=== PATIENT | female | born 1985 | race Caucasian/White ===

== ENCOUNTER 2020-01-20 17:35 | Emergency (ER) | payer OTHER ==
[2020-01-20 17:42] VITALS: TEMP 98; BMI 28.7
--- NOTE | 2020-01-20 18:24 | PDOC ---
History of Present Illness - General Chief Complaint: Vaginal Bleeding Stated Complaint: VAGINAL BLEEDING (11 WEKS) Time Seen by Provider: 01/20/20 18:23 - History of Present Illness Initial Comments: 01/20/20 19:20 34 y/o F A4 11 weeks (LMP 11/03) presents to the ED with 1 day of vaginal bleeding/spotting and right sided abdominal pain. Pain is right sided 8/10 pain that radiates to her back and is cramping in nature. Her last visit to OB was a few days ago and she reports Ultrasound and labs were fine. She denies any fevers, chills, vomiting, diarrhea, dysuria, purulent vaginal discharge Past History - Past Medical History Allergies/Adverse Reactions: Allergies Allergy/AdvReac Type Severity Reaction Status Date / Time No Known Drug Allergies Allergy Verified 01/20/20 17:42 Home Medications: Ambulatory Orders Pnv No.95/Ferrous Fum/Folic AC [ Caplet] 1 tablet PO DAILY 01/20/20 Anemia: Yes Asthma: Yes (SEASONAL) COPD: No GI Disorders: Yes (GERD) Thyroid Disease: No - Surgical History Appendectomy: Yes - Psycho Social/Smoking Cessation Hx Smoking History: Never smoked Have you smoked in the past 12 months: Yes Number of Cigarettes Smoked Daily: 3 Hx Alcohol Use: No Drug/Substance Use Hx: No Substance Use Type: None *Physical Exam - Vital Signs Last Vital Signs Temp Pulse Resp BP Pulse Ox 98 F 98 H 18 116/76 99 01/20/20 17:40 01/20/20 17:40 01/20/20 17:40 01/20/20 17:40 01/20/20 17:40 - Physical Exam 01/20/20 19:27 GENERAL: Awake, alert, and fully oriented, in no acute distress HEAD: No signs of trauma, normocephalic, atraumatic EYES: EOMI, sclera anicteric, conjunctiva clear ENT: Auricles normal inspection, hearing grossly normal, nares patent, oropharynx clear without exudates. Moist mucosa NECK: Normal ROM, supple, no lymphadenopathy, JVD, or masses LUNGS: No distress, speaks full sentences, clear to auscultation bilaterally HEART: Regular rate and rhythm, normal S1 and S2, no murmurs, rubs or gallops, peripheral pulses normal and equal bilaterally. ABDOMEN: Soft, ttp RLQ and suprapubic normoactive bowel sounds. No guarding, no rebound. No masses EXTREMITIES : Normal inspection, Normal range of motion, no edema. No clubbing or cyanosis NEUROLOGICAL: Cranial nerves II through XII grossly intact. Normal speec no focal sensorimotor deficits SKIN: Warm, Dry, normal turgor, no rashes or lesions noted ED Treatment Course - LABORATORY CBC & Chemistry Diagram: 01/20/20 18:58 01/20/20 18:58 Medical Decision Making - Medical Decision Making 01/20/20 19:30 34 y/o F A4 11 weeks (LMP 12/28) presents to the ED with 1 day of vaginal bleeding/spotting and right sided abdominal pain workup: cbc, cmp, ua, hcg quant, type and screen. 01/20/20 20:05 EXAM: <14WKS US HISTORY: Vaginal bleeding. COMPARISON: None. Preliminary findings/impression: 1. Single live intrauterine gestation, with heart rate ranging from 171 bpm to 179.3 bpm. Estimated gestational age by ultrasound criteria is 11 weeks and 5 days, with estimated gestational age by clinical parameters of 11 weeks and 1 day. 2. Nonvisualization of the right ovary. A short-term follow-up transvaginal ultrasound is recommended if there is concern for right adnexal abnormalities. 01/20/20 21:21 A single live intrauterine is seen to be present 11 weeks 5 days . Est imated due date is 08/05/2020 . heart rate measures 165.9 beats per minute. Anatomy: Limited due to emergent study. Cervix:5.2 cm and closed. IMPRESSION: 1. Single live intrauterine consistent with a 11 weeks 5 days gestation with an estimated due date of 08/05/2020. 2. No right ovarian torsion. . Discharge - Discharge Information Problems reviewed: Yes Clinical Impression/Diagnosis: Abdominal pain Qualifiers: Abdominal location: right lower quadrant Qualified Code(s): R10.31 - Right lower quadrant pain Condition: Stable - Admission No - Follow up/Referral - Patient Discharge Instructions Patient Printed Discharge Instructions: Vaginal Bleeding During Additional Instructions: you were seen in the ER for vaginal bleeding your ultrasounds showed a viable and your right ovary did not show signs of rupture take tylenol for pain at home. Follow up with your MAIN LINE ASSEMBLER in the next 2-3 days RETURN TO THE ER if you continue bleeding and soak more than 1-2 heavy pad in an hour, abdominal pain is persistent. you develop fevers, chills or purulent discharge. - Post Discharge Activity
[2020-01-20] MEDS ORDERED: SODIUM CHLORIDE 0.9% 500 ML INFUS.BAG IV ONE (18:54)
--- NOTE | 2020-01-20 19:12 | PDOC ---
Documentation entered by Ty De Los Santos SCRIBE, acting as scribe for Vicky Munoz MD. Vicky Munoz MD: This documentation has been prepared by the Filiberto hernandez Nirvannie, SCRIBE, under my direction and personally reviewed by me in its entirety. I confirm that the documentation accurately reflects all work, treatment, procedures, and medical decision making performed by me. Attending Attestation - Resident Resident Name: Gonzalez Rizvi - ED Attending Attestation I have performed the following: I have examined & evaluated the patient, The case was reviewed & discussed with the resident, I agree w/resident's findings & plan, Exceptions are as noted - HPI HPI: 01/20/20 19:11 34-year-old female presents with 1 day of vaginal bleeding and suprapubic pain. Past medical history 6. To a 4 HPI she saw her EQUIPMENT MECHANIC SPECIALIST Dr. Seth on Tuesday and she has had imaging studies that showed single live IUP of approximately 11 weeks She denies fever or chills or diarrhea or vomiting Past surgical history appendectomy - Physicial Exam PE: 01/20/20 19:12 Well-nourished well-developed 34-year-old female complaining of vaginal bleeding Head normocephalic atraumatic Neck is supple Lungs are clear to auscultation bilaterally CVS regular rate rhythm S1-S2 Abdomen soft, no rebound, no guarding pelvic exam done by Dr. Leisa Coleman and os was closed with minimal amount of clots in the vaginal vault, no CMT Extremities no pitting edema Skin warm and dry Neuro alert and oriented x3, ambulatory no gross focal neuro deficits - Medical Decision Making 01/20/20 19:13 Pression threatened AB Plan beta-hCG, type and screen, transvaginal ultrasound Patient has a follow-up visit with Dr. Seth January 29 01/20/20 23:37 SL IUP imp threatened AB plan net sorter follow up Discharge - Discharge Information Problems reviewed: Yes Clinical Impression/Diagnosis: Abdominal pain Qualifiers: Abdominal location: right lower quadrant Qualified Code(s): R10.31 - Right lower quadrant pain Condition: Stable Disposition: HOME - Follow up/Referral - Patient Discharge Instructions Patient Printed Discharge Instructions: Vaginal Bleeding During Additional Instructions: you were seen in the ER for vaginal bleeding your ultrasounds showed a viable and your right ovary did not show signs of rupture take tylenol for pain at home. Follow up with your EQUIPMENT MECHANIC SPECIALIST in the next 2-3 days RETURN TO THE ER if you continue bleeding and soak more than 1-2 heavy pad in an hour, abdominal pain is persistent. you develop fevers, chills or purulent discharge. - Post Discharge Activity
[2020-01-20 19:29] LABS: BASO % 0.5 % (0-2.0); EOS % 4.3 % (0-4.5); HEMATOCRIT 34.2 % (32.4-45.2); HEMOGLOBIN 11.7 GM/dL (10.7-15.3); LYMPH % 25.1 % (8-40); MCH 30.1 pg (25.7-33.7); MCHC 34.2 g/dl (32.0-36.0); MEAN CELL VOLUME 87.9 fl (80-96); NEUT % 64.1 % (42.8-82.8); PLATELET COUNT 183 K/MM3 (134-434); RBC 3.89 M/mm3 (3.60-5.2); RDW 13.5 % (11.6-15.6); WHITE BLOOD COUNT 7.3 K/mm3 (4.0-10.0)
[2020-01-20 20:24] LABS: ALBUMIN 3.3 g/dl (3.4-5.0); BILIRUBIN,TOTAL 0.3 mg/dL (0.2-1); BLOOD UREA NITROGEN 8.5 mg/dL (7-18); CALCIUM 8.4 mg/dL (8.5-10.1); CREATININE 0.6 mg/dL (0.55-1.3); POTASSIUM 3.7 mmol/L (3.5-5.1)
[2020-01-20 20:27] LABS: PH,URINE 7.5 (5.0-8.0); URINE APPEARANCE CLEAR; URINE BILIRUBIN NEGATIVE (NEGATIVE); URINE COLOR YELLOW; URINE GLUCOSE (UA) NEGATIVE (NEGATIVE); URINE KETONE NEGATIVE (NEGATIVE); URINE LEUK ESTERASE NEGATIVE (NEGATIVE); URINE NITRITE NEGATIVE (NEGATIVE); URINE PROTEIN NEGATIVE (NEGATIVE)
[2020-01-20] MEDS ORDERED: METOCLOPRAMIDE HCL INJECTION 10 MG/2 ML VIAL IVPB ONE (20:46)
[2020-01-20] MEDS ORDERED: METOCLOPRAMIDE HCL INJECTION 10 MG/2 ML VIAL ONE (20:53)
[2020-01-20 21:48] VITALS: BP 102/72; PULSE 99
== END 2020-01-20 21:40 | disposition home or self-care (01) ==
LOC: JER 17:35
PROC: 3E033GC Introduction of Other Therapeutic Substance into Peripheral Vein, Percutaneous Approach (ICD-10-PCS; principal; 2020-01-20)
DX: O26.891 Other specified pregnancy related conditions, first trimester (principal); R10.31 Right lower quadrant pain; Z3A.11 11 weeks gestation of pregnancy; D64.9 Anemia, unspecified; K21.9 Gastro-esophageal reflux disease without esophagitis; J45.998 Other asthma
CPT/HCPCS: 36415; 76801-TC; 76817-TC; 80053; 81003; 84702; 85025; 86850; 86900; 86901; 99284-25

== ENCOUNTER 2020-08-10 19:25 | Inpatient (IN) | payer OTHER ==
[2020-08-10] MEDS ORDERED: AMPICILLIN - 2 GM in SODIUM CHLORIDE 100 ML IVPB ONE (19:30)
--- OUTSIDE RECORDS SUMMARY | 2020-08-10 19:48 | XMS ---
:1985 Author Organization [facility] Support Name Relationship Address Phone [employer] Unavailable [address] [place] [address] SARAH MOTHER [address] [place] [address] Re-disclosure Warning The records that you are about to access may contain information from federally- assisted alcohol or drug abuse programs. If such information is present, then the following federally mandated warning applies: This information has been disclosed to you from records protected by federal confidentiality rules (42 CFR part 2). The federal rules prohibit you from making any further disclosure of this information unless further disclosure is expressly permitted by the written consent of the person to whom it pertains or as otherwise permitted by 42 CFR part 2. A general authorization for the release of medical or other information is NOT sufficient for this purpose. The Federal rules restrict any use of the information to criminally investigate or prosecute any alcohol or drug abuse patient.The records that you are about to access may contain highly sensitive health information, the redisclosure of which is protected by Article 27-F of the [facility] Public Health law. If you continue you may haveaccess to information: Regarding HIV / AIDS; Provided by facilities licensed or operated by the [facility] Office of Mental Health; or Provided by the [facility] Office for People With Developmental Disabilities. If such information is present, then the following [facility] mandated warning applies: This information has been disclosed to you from confidential records which are protected by state law. State law prohibits you from making any further disclosure of this information without the specific written consent of the person to whom it pertains, or as otherwise permitted by law. Any unauthorized further disclosure in violation of state law may result in a fine or nursing home sentence or both. A general authorization for the release of medical or other information is NOT sufficient authorization for further disclosure. Insurance Providers Payer name Policy type / Policy ID Covered Covered constitution party's Policy Plan Coverage type constitution party ID relationship to [place] Information [place] [employer] HMO [id number] SP [id number] Results ID Date Data Source [id number] 08/06/2020 12:14:00 PM EDT [facility] Name Value Range Interpretation Description Data Sup porting Code Source(s) Document(s ) SARS [facility] coronavirus 2 RNA This lab was ordered by [facility] and reported by [facility]. Procedure
[2020-08-10 20:36] VITALS: BMI 33.6
--- NOTE | 2020-08-10 20:54 | HP ---
Past Medical History - Primary Care Physician PCP:: Margaret Huston - Admission Chief Complaint: post dates History of Present Illness: 35 yo G 7 P2 EDC EGA 40 week admitted for induction of labor History Source: Patient Limitations to Obtaining History: No Limitations - Past Medical History ...: 7 ...Para: 2 ...Term: 2 ...: 0 ...Spon : 2 ...Induced : 2 ...Living Children: 2 ...LMP: 10/24/19 ... Weeks Gestation by Dates: 40.0 ...EDC by Dates: 08/10/20 ...EDC by Sono: 08/09/20 - Past Surgical History Past Surgical History: Yes: None Hx Myomectomy: No Hx Transabdominal Cerclage: No - Smoking History Smoking history: Never smoked Have you smoked in the past 12 months: No Aproximately how many cigarettes per day: 3 - Alcohol/Substance Use Hx Alcohol Use: No History of Substance Use: reports: None - Social History Usual Living Arrangement: Yes: With Spouse Do you think of yourself as: Straight/Heterosexual History of Recent Travel: No Home Medications - Allergies Allergies/Adverse Reactions: Allergies Allergy/AdvReac Type Severity Reaction Status Date / Time No Known Drug Allergies Allergy Verified 08/10/20 19:58 - Home Medications Home Medications: Ambulatory Orders Iron,Carb/Vit C/Vit B12/Folic [Iron 100 Plus Tablet] 1 tab PO DAILY 08/10/20 Pnv No.95/Ferrous Fum/Folic AC [ Vitamin Tablet] 1 each PO DAILY 08/10/20 Review of Systems - Review of Systems Constitutional: reports: No Symptoms Eyes: reports: No Symptoms HENT: reports: No Symptoms Neck: reports: No Symptoms Cardiovascular: reports: No Symptoms Respiratory: reports: No Symptoms Gastrointestinal: reports: No Symptoms Genitourinary: reports: No Symptoms Breasts: reports: No Symptoms Reported Musculoskeletal: reports: No Symptoms Integumentary: reports: No Symptoms Neurological: reports: No Symptoms Endocrine: reports: No Symptoms Hematology/Lymphatic: reports: No Symptoms Psychiatric: reports: No Symptoms Physical Exam - Maternity Vital Signs: Vital Signs Temperature 97.2 F L 08/10/20 20:11 Pulse Rate 80 08/10/20 20:11 Respiratory Rate 20 08/10/20 20:11 Blood Pressure 116/72 08/10/20 20:11 O2 Sat by Pulse Oximetry (%) Constitutional: Yes: Well Nourished Neck: Yes: WNL Cardiovascular: Yes: WNL - Abdominal Exam/OB Number of Fetuses: Single Presentation: Vertex Contractions: No Monitor Mode: External Heart Rate Location: [facility] Category: I - Vaginal Exam/OB Vaginal Bleeding: No Speculum Exam: No Dilatation (cm): 1-2 cm Effacement (%): 70 Amniotic Membrane Status: Intact Presentation: Vertex/Position Station: -1 - Physical Exam Extremities: Yes: WNL Edema: No Psychiatric: Yes: WNL, Alert, Oriented Hemorrhage Risk Assessment - Risk Factors Risk Score: 0 Risk Level: Low Risk Problem List - Problems (1) 40 weeks gestation of Problems reviewed: Yes Code(s): Z3A.40 - 40 WEEKS GESTATION OF (2) Elderly multigravida Problems reviewed: Yes Code(s): O09.529 - SUPERVISION OF ELDERLY MULTIGRAVIDA, UNSPECIFIED TRIMESTER Assessment/Plan iup at 40 week elderly Plan cervidil
[2020-08-10 21:09] LABS: BASO % 0.4 % (0-2.0); EOS % 2.6 % (0-4.5); HEMATOCRIT 32.2 % (32.4-45.2); HEMOGLOBIN 11.2 GM/dL (10.7-15.3); LYMPH % 22.6 % (8-40); MCH 31.8 pg (25.7-33.7); MCHC 34.8 g/dl (32.0-36.0); MEAN CELL VOLUME 91.6 fl (80-96); MEAN PLT VOLUME 9.7 fl (7.5-11.1); MONO % 7.9 % (3.8-10.2); NEUT % 66.5 % (42.8-82.8); PLATELET COUNT 102 K/MM3 (134-434); RBC 3.51 M/mm3 (3.60-5.2); RDW 15.1 % (11.6-15.6); WHITE BLOOD COUNT 5.7 K/mm3 (4.0-10.0)
[2020-08-10 21:15] LABS: INR 0.96 (0.83-1.09); PROTHROMBIN TIME (PATIENT) 11.3 SEC (9.7-13.0)
[2020-08-10] MEDS ORDERED: PROMETHAZINE HCL 25 MG/1 ML VIAL IVPUSH ONE (21:15)
[2020-08-10] MEDS ORDERED: BUTORPHANOL TARTRATE 1 MG/ML VIAL IVPB ONE (21:15)
[2020-08-10] MEDS ORDERED: CITRIC ACID/SODIUM CITRATE 30 ML UNIT-DOSE CUP PO ONE (21:15)
[2020-08-10] MEDS ORDERED: DINOPROSTONE 10 MG VAGINAL SUPPOSITORY VG ONE (21:18)
[2020-08-10] MEDS ORDERED: AMPICILLIN SODIUM 2 GM VIAL ONE (21:45)
[2020-08-10 21:47] LABS: BLOOD UREA NITROGEN 8.1 mg/dL (7-18); CALCIUM 8.1 mg/dL (8.5-10.1); CREATININE 0.7 mg/dL (0.55-1.3); POTASSIUM 3.8 mmol/L (3.5-5.1)
[2020-08-10] MEDS: ELECTROLYTE-148 SOLN 1,000 ML IV SCH (22:00)
[2020-08-11] MEDS: AMPICILLIN - 1 GM in SODIUM CHLORIDE 100 ML IVPB SCH ×7 (02:00→22:00)
[2020-08-11] MEDS ORDERED: AMPICILLIN SODIUM 1 GM VIAL ONE ×6 (02:51→21:56)
[2020-08-11] MEDS ORDERED: PROMETHAZINE HCL 25 MG/1 ML VIAL ONE (07:46)
[2020-08-11] MEDS ORDERED: BUTORPHANOL TARTRATE 2 MG/ML VIAL ONE (07:46)
[2020-08-11] MEDS ORDERED: PROMETHAZINE HCL 25 MG/1 ML VIAL IVPB ONE (08:45)
[2020-08-11] MEDS ORDERED: BUTORPHANOL TARTRATE 2 MG/ML VIAL IVPB ONE (08:45)
[2020-08-11] MEDS ORDERED: OXYTOCIN 30 UNITS in 0.9% NS 30 UNIT/500 ML INFUS.BAG IVPB ONE (18:14)
[2020-08-11] MEDS: OXYTOCIN 30 UNITS in 0.9% NS 30 UNIT/500 ML INFUS.BAG IVPB SCH (19:00)
--- NOTE | 2020-08-11 19:13 | PN ---
Ante-Partal Exam - Subjective Subjective: Pt with strong contractions Vital Signs: Vital Signs Temperature 98.3 F 08/11/20 19:00 Pulse Rate 95 H 08/11/20 19:00 Respiratory Rate 18 08/11/20 19:00 Blood Pressure 124/73 08/11/20 19:00 O2 Sat by Pulse Oximetry (%) Bleeding: No Headache: No Visual changes: No Right upper quadrant pain: No - Contractions Contractions: Yes Regularity: Regular Intensity: Mild/Mod Monitor Mode: External - Exam during Labor Variability: Moderate Heart Rate Location: [facility] Category: I Monitor Accelerations: Present Exam: Vaginal Dilatation (cm): 2 Effacement (%): 70 Amniotic Membrane Status: Leaking Presentation: Vertex Station: -1 - Intrapartum Hemorrhage Risk Medium Risk Factors: None High Risk Factors: None Risk Score: 0 Risk Level: Low Risk - Assessment/Plan Assessment/Plan: post dates induction 40 week Cat 1 Plan Pitocin augmentation
[2020-08-11] MEDS ORDERED: OXYTOCIN 30 UNITS in 0.9% NS 30 UNIT/500 ML INFUS.BAG IVPB SCH (19:15)
[2020-08-11] MEDS ORDERED: FENTANYL/BUPIVACAINE/NS/PF - PCEA - 50 ML DISP.SYRIN EP ONE (23:29)
[2020-08-11] MEDS ORDERED: PCA PUMP NR ONE (23:29)
[2020-08-12] MEDS ORDERED: NALOXONE HCL 0.4 MG/ML VIAL IVPUSH PRN (00:11)
--- NOTE | 2020-08-12 01:05 | PN ---
Ante-Partal Exam - Subjective Subjective: Pt with epidural and comfortable Vital Signs: Vital Signs Temperature 98.1 F 08/11/20 23:00 Pulse Rate 85 08/11/20 23:55 Respiratory Rate 20 08/11/20 23:55 Blood Pressure 117/71 08/11/20 23:55 O2 Sat by Pulse Oximetry (%) 99 08/11/20 23:55 Bleeding: No Headache: No Visual changes: No Right upper quadrant pain: No - Contractions Contractions: Yes Regularity: Regular Intensity: Mild/Mod Monitor Mode: External - Exam during Labor Heart Rate: 145 Variability: Moderate Heart Rate Location: [facility] Category: I Monitor Accelerations: Present Monitor Decelerations: None Exam: Vaginal Dilatation (cm): 3 Effacement (%): 80 Amniotic Membrane Status: Ruptured Presentation: Vertex Station: -1 - Intrapartum Hemorrhage Risk Medium Risk Factors: None High Risk Factors: None Risk Score: 0 Risk Level: Low Risk - Assessment/Plan Assessment/Plan: Cat 1 40 week Pt on 12 mu pitocin AMA Plan continue present management
[2020-08-12] MEDS ORDERED: AMPICILLIN SODIUM 1 GM VIAL ONE ×3 (01:58→09:42)
[2020-08-12] MEDS: AMPICILLIN - 1 GM in SODIUM CHLORIDE 100 ML IVPB SCH ×3 (02:00→09:52)
[2020-08-12] MEDS ORDERED: FENTANYL/BUPIVACAINE/NS/PF - PCEA - 50 ML DISP.SYRIN EP ONE ×3 (04:10→11:49)
[2020-08-12] MEDS ORDERED: OXYTOCIN 30 UNITS in 0.9% NS 30 UNIT/500 ML INFUS.BAG IVPB ONE (07:08)
[2020-08-12] MEDS ORDERED: PCA PUMP NR ONE (08:02)
[2020-08-12] MEDS: FENTANYL/BUPIVACAINE/NS/PF - PCEA - 50 ML DISP.SYRIN EP SCH ×3 (08:07→23:07)
[2020-08-12] MEDS: OXYTOCIN 30 UNITS in 0.9% NS 30 UNIT/500 ML INFUS.BAG IVPB SCH (08:09)
[2020-08-12] MEDS ORDERED: SODIUM CHLORIDE 100 ML IVPB ONE (09:42)
[2020-08-12] MEDS: ELECTROLYTE-148 SOLN 1,000 ML IV SCH ×2 (09:52→23:10)
[2020-08-12] MEDS ORDERED: BUPIVACAINE HCL/PF 0.25% (2.5MG/ML) 10 ML VIAL ONE (12:11)
--- NOTE | 2020-08-12 12:37 | PN ---
Ante-Partal Exam - Subjective Subjective: Pt with blood show Vital Signs: Vital Signs Temperature 98.2 F 08/12/20 11:45 Pulse Rate 73 08/12/20 12:18 Respiratory Rate 20 08/12/20 12:18 Blood Pressure 127/78 08/12/20 12:18 O2 Sat by Pulse Oximetry (%) 99 08/12/20 12:18 Bleeding: No Headache: No Visual changes: No Right upper quadrant pain: No - Contractions Contractions: Yes Monitor Mode: External - Exam during Labor Heart Rate: 145 Variability: Moderate Category: I Monitor Accelerations: Present Monitor Decelerations: None Exam: Vaginal Dilatation (cm): 8 Effacement (%): 90 Amniotic Membrane Status: Ruptured Amniotic Fluid: Clear Presentation: Vertex Station: -1 - Intrapartum Hemorrhage Risk Risk Score: 0 Risk Level: Low Risk - Assessment/Plan Assessment/Plan: Cat 1 bloody show thrombocytopenia
[2020-08-12 13:15] LABS: BASO % 0.4 % (0-2.0); EOS % 0.9 % (0-4.5); HEMATOCRIT 33.3 % (32.4-45.2); HEMOGLOBIN 11.2 GM/dL (10.7-15.3); LYMPH % 9.2 % (8-40); MCH 30.8 pg (25.7-33.7); MCHC 33.6 g/dl (32.0-36.0); MEAN CELL VOLUME 91.7 fl (80-96); MEAN PLT VOLUME 9.2 fl (7.5-11.1); MONO % 5.5 % (3.8-10.2); PLATELET COUNT 93 K/MM3 (134-434); RBC 3.63 M/mm3 (3.60-5.2); RDW 15.2 % (11.6-15.6); RETICULOCYTES 2.68 % (0.5-1.5); WHITE BLOOD COUNT 7.1 K/mm3 (4.0-10.0)
[2020-08-12] MEDS ORDERED: OXYTOCIN 20 UNITS in 0.9% NS 20 UNIT/1,000 ML INFUS.BAG IV ONE (14:01)
[2020-08-12] MEDS ORDERED: LIDO 2%/EPI 1:200000 PRESRVFRE (20 ML SDVIAL) ONE (14:41)
[2020-08-12] MEDS ORDERED: LIDOCAINE HCL 1% PRESERVATIVE FREE - 30ML VIAL ONE (14:42)
--- NOTE | 2020-08-12 15:00 | PN ---
Ante-Partal Exam - Subjective Subjective: Pt with ure to push Vital Signs: Vital Signs Temperature 97.9 F 08/12/20 13:03 Pulse Rate 81 08/12/20 12:30 Respiratory Rate 20 08/12/20 12:30 Blood Pressure 123/76 08/12/20 12:30 O2 Sat by Pulse Oximetry (%) 100 08/12/20 12:30 Bleeding: No Headache: No Visual changes: No Right upper quadrant pain: No - Contractions Contractions: Yes - Exam during Labor Variability: Moderate Category: I Monitor Decelerations: None Exam: Vaginal Dilatation (cm): FD Effacement (%): 10 Amniotic Membrane Status: Ruptured Presentation: Vertex Station: 0 - Intrapartum Hemorrhage Risk Risk Score: 0 Risk Level: Low Risk - Assessment/Plan Assessment/Plan: CAt 1 thrombocytopenia fully dilated 2nd stage Plan Anticipate vaginal delivery
--- NOTE | 2020-08-12 15:04 | PN ---
Delivery - Delivery Vaginal Delivery: No Problems, Vacuum Assist (Nuchal cord x 1), Other (Nuchal cord x 1) Type of Anesthesia: Epidural Episiotomy/Laceration: None EBL (cc): 300 Delivery, Single - Stages of Labor Placenta: Yes: Spontaneous - Condition of Automotive Sales Professional/Bankman Present: No Gender: Female Position: OA - Feeding Plan Initial Plan: Elected not to breastfeed exclusively throughout hospitalization
[2020-08-12] MEDS ORDERED: BISACODYL 10 MG SUPP.RECT PR PRN (15:05)
[2020-08-12] MEDS ORDERED: WITCH HAZEL 50% (TUCKS) 40 PAD/JAR PAD TP PRN (15:05)
[2020-08-12] MEDS ORDERED: oxyCODONE HCL 5 MG TABLET PO PRN (15:05)
[2020-08-12] MEDS ORDERED: BENZOCAINE 20% 57 GM BOTTLE TP PRN (15:05)
[2020-08-12] MEDS ORDERED: BENZOCAINE 28 GM HEMORRHOIDAL OINTMENT PR PRN (15:05)
[2020-08-12] MEDS ORDERED: METHYLERGONOVINE MALEATE 0.2 MG/1 ML AMP IM PRN (15:05)
[2020-08-12] MEDS ORDERED: OXYTOCIN 20 UNITS in 0.9% NS 20 UNIT/1,000 ML INFUS.BAG IV SCH (15:15)
[2020-08-12] MEDS ORDERED: oxyCODONE HCL 5 MG TABLET ONE (15:32)
[2020-08-12] MEDS ORDERED: AMPICILLIN - 1 GM in SODIUM CHLORIDE 100 ML IVPB SCH (16:00)
[2020-08-12 16:19] LABS: CORD BASE EXCESS -6.2 mmol/L (0-2); CORD HCO3 18.7 mmHg (20-29); CORD PCO2 36.2 mmHg (30-78); CORD pH 7.332 (7.14-7.44)
[2020-08-12] MEDS: IBUPROFEN 600 MG TABLET (FP) PO PRN (20:01)
[2020-08-12] MEDS: ACETAMINOPHEN 325 MG TABLET (FP) PO PRN (20:01)
[2020-08-13] MEDS: ACETAMINOPHEN 325 MG TABLET (FP) PO PRN ×2 (01:17→05:41)
[2020-08-13] MEDS: IBUPROFEN 600 MG TABLET (FP) PO PRN ×2 (01:17→05:42)
--- NOTE | 2020-08-13 07:15 | PROC ---
Obstetrical Vaccum Device - Doc. Following Use of Vaccum Device Indications for use: Maternal Exhaustion Risks and Benefits Explained: Yes Consent on Chart: Yes Station: 2 Molding: No Position: OA Caput: No Proper placement of cup confirmed: No Number of pulls: 1 Number of pop-offs: 0 Reduction of pressure between contractions: Yes Appearance of head on delivery: Normal General Laborer present during vacuum extraction: No General Laborer & nursery staff notified of vacuum extraction: Yes
--- NOTE | 2020-08-13 07:16 | PN ---
Post Note - Post Date of Delivery: 08/12/20 Post Day: 1 Vital Signs: Vital Signs - 24 hr 08/12/20 08/12/20 08/12/20 07:30 07:45 08:00 Temperature Pulse Rate 71 64 Respiratory 20 20 Rate Blood Pressure 126/73 115/79 O2 Sat by Pulse 100 100 100 Oximetry (%) 08/12/20 08/12/20 08/12/20 08:07 08:15 08:30 Temperature Pulse Rate 66 65 73 Respiratory 20 20 20 Rate Blood Pressure 123/71 129/77 123/80 O2 Sat by Pulse 100 100 99 Oximetry (%) 08/12/20 08/12/20 08/12/20 08:45 09:00 09:15 Temperature Pulse Rate 71 64 70 Respiratory 20 20 20 Rate Blood Pressure 117/81 118/73 132/58 L O2 Sat by Pulse 100 100 100 Oximetry (%) 08/12/20 08/12/20 08/12/20 09:30 09:45 10:00 Temperature Pulse Rate 66 71 63 Respiratory 20 20 20 Rate Blood Pressure 121/76 124/77 117/76 O2 Sat by Pulse 100 100 100 Oximetry (%) 08/12/20 08/12/20 08/12/20 10:14 10:15 10:30 Temperature 98.0 F Pulse Rate 69 69 Respiratory 20 20 Rate Blood Pressure 110/56 L 127/74 O2 Sat by Pulse 100 100 Oximetry (%) 08/12/20 08/12/20 08/12/20 10:45 11:00 11:15 Temperature Pulse Rate 74 68 63 Respiratory 20 20 20 Rate Blood Pressure 125/78 123/74 124/77 O2 Sat by Pulse 100 100 99 Oximetry (%) 08/12/20 08/12/20 08/12/20 11:30 11:45 11:52 Temperature 98.2 F Pulse Rate 70 73 Respiratory 20 20 20 Rate Blood Pressure 132/77 131/70 O2 Sat by Pulse 100 100 100 Oximetry (%) 08/12/20 08/12/20 08/12/20 12:00 12:14 12:15 Temperature Pulse Rate 89 76 77 Respiratory 20 20 20 Rate Blood Pressure 139/86 124/84 123/83 O2 Sat by Pulse 100 100 99 Oximetry (%) 08/12/20 08/12/20 08/12/20 12:18 12:30 12:45 Temperature Pulse Rate 73 81 75 Respiratory 20 20 20 Rate Blood Pressure 127/78 123/76 125/74 O2 Sat by Pulse 99 100 100 Oximetry (%) 08/12/20 08/12/20 08/12/20 13:00 13:03 13:15 Temperature 97.9 F Pulse Rate 79 89 Respiratory 20 20 Rate Blood Pressure 127/75 129/82 O2 Sat by Pulse 100 100 Oximetry (%) 08/12/20 08/12/20 08/12/20 13:30 13:45 15:00 Temperature 98.6 F Pulse Rate 86 75 95 H Respiratory 20 20 20 Rate Blood Pressure 133/87 128/77 124/75 O2 Sat by Pulse 97 100 Oximetry (%) 08/12/20 08/12/20 08/12/20 15:15 15:30 15:45 Temperature Pulse Rate 93 H 88 81 Respiratory 20 20 20 Rate Blood Pressure 124/75 120/66 129/72 O2 Sat by Pulse 100 99 99 Oximetry (%) 08/12/20 08/12/20 08/13/20 17:50 20:27 01:39 Temperature 98.2 F 99.0 F 98.7 F Pulse Rate 80 80 85 Respiratory 20 18 18 Rate Blood Pressure 118/74 130/77 107/72 O2 Sat by Pulse Oximetry (%) 08/13/20 05:47 Temperature 98.0 F Pulse Rate 77 Respiratory 18 Rate Blood Pressure 102/67 O2 Sat by Pulse Oximetry (%) Labs: Laboratory Results - last 24 hr 08/12/20 08/12/20 08/12/20 12:57 12:57 14:55 WBC 7.1 RBC 3.63 Hgb 11.2 Hct 33.3 MCV 91.7 MCH 30.8 MCHC 33.6 RDW 15.2 Plt Count 93 L MPV 9.2 Absolute Neuts (auto) 6.0 Neutrophils % 84.0 H D Lymphocytes % 9.2 D Monocytes % 5.5 Eosinophils % 0.9 Basophils % 0.4 Nucleated RBC % 0 Retic Count 2.68 H Cord Blood pH 7.332 Cord Blood PCO2 36.2 Cord Blood PO2 35.6 Cord Blood HCO3 18.7 L Cord Base Excess -6.200 L Uric Acid 5.0 GGT 12 AST 30 ALT 42 08/12/20 14:55 WBC RBC Hgb Hct MCV MCH MCHC RDW Plt Count MPV Absolute Neuts (auto) Neutrophils % Lymphocytes % Monocytes % Eosinophils % Basophils % Nucleated RBC % Retic Count Cord Blood pH Cancelled Cord Blood PCO2 Cancelled Cord Blood PO2 Cancelled Cord Blood HCO3 Cancelled Cord Base Excess Cancelled Uric Acid GGT AST ALT - Subjective Subjective: No Complaints - Objective Afebrile: Yes Breast: Not engorged Abdomen: Soft, Non-tender Uterus: Fundus firm Vagina: Scant lochia Extremities: Non-tender - Assessment/Plan (1) 40 weeks gestation of Assessment: S/P Normal Plan: Routine Care
[2020-08-13] MEDS: AMPICILLIN - 1 GM in SODIUM CHLORIDE 100 ML IVPB SCH (07:29)
[2020-08-13 09:13] LABS: BASO % 0.4 % (0-2.0); EOS % 1.8 % (0-4.5); HEMOGLOBIN 9.4 GM/dL (10.7-15.3); LYMPH % 17.4 % (8-40); MCH 30.8 pg (25.7-33.7); MCHC 33.7 g/dl (32.0-36.0); MEAN CELL VOLUME 91.6 fl (80-96); MEAN PLT VOLUME 10.1 fl (7.5-11.1); MONO % 6.9 % (3.8-10.2); NEUT % 73.5 % (42.8-82.8); PLATELET COUNT 84 K/MM3 (134-434); RBC 3.05 M/mm3 (3.60-5.2); RDW 15.3 % (11.6-15.6); WHITE BLOOD COUNT 7.6 K/mm3 (4.0-10.0)
[2020-08-14 11:30] VITALS: BP 112/69; PULSE 89; TEMP 98.5
== END 2020-08-14 15:13 | disposition home or self-care (01) | DRG 806 ==
LOC: JLDR 19:25 → J3W 08-12 19:35
PROVIDERS: ADMIT Obstetrics & Gynecology; ATTEND Obstetrics & Gynecology
PROC: 10D07Z6 Extraction of Products of Conception, Vacuum, Via Natural or Artificial Opening (ICD-10-PCS; principal; 2020-08-12)
DX: O48.0 Post-term pregnancy (principal); O99.12 Other diseases of the blood and blood-forming organs and certain disorders involving the immune mechanism complicating childbirth; Z37.0 Single live birth; D69.6 Thrombocytopenia, unspecified; O99.824 Streptococcus B carrier state complicating childbirth; O69.81X0 Labor and delivery complicated by cord around neck, without compression, not applicable or unspecified; O75.81 Maternal exhaustion complicating labor and delivery; Z86.19 Personal history of other infectious and parasitic diseases; Z3A.40 40 weeks gestation of pregnancy
CPT/HCPCS: 36415; 36600; 59409; 80048; 82803; 82977; 83010; 84450; 84460; 84550; 85025; 85045; 85610; 85730; 86780; 86850; 86900; 86901